=== PATIENT | male | born 1955 | race Two or more races ===

== ENCOUNTER → 2017-01-22 | Outpatient (CLI) | payer OTHER ==
[~2017-01-22] MED LIST: ASCO500C PO; AUGM500T7 PO; BACL20TA PO; BUSP1TAB PO; CIPR-9 PO; CLAR10CA3 PO; CRANCAP9; GABA600T PO; OMEP20TA PO; STOO100C; TRAZ50TA12 PO
--- NOTE | 2017-01-22 17:58 | RADRPT ---
EXAM DATE/TIME: 01/22/2017 15:10 [place] COMPARISON: US KIDNEY/RENAL/BLADDER, December 10, 2013, 16:15. INDICATIONS : Frequent UTI. MEDICAL HISTORY : Gastroesophageal reflux disease. Methicillin-resistant Staphylococcus aureus. Osteomyelitis. Quadrepl egia. Tuberculosis. Arthritis. Hepatitis C. SURGICAL HISTORY : Pacemaker. Cervical surgery. ENCOUNTER: Subsequent ACUITY: 3 days PAIN SCORE: 1/10 LOCATION: Bilateral flank MEASUREMENTS: RIGHT KIDNEY: 14.1 x 5.2 x 5.8 cm LEFT KIDNEY: 10.8 x 6.2 x 7.6 cm FINDINGS: RIGHT KIDNEY: Renal cortex is normal in thickness and echotexture. No hydronephrosis, stone, or mass. LEFT KIDNEY: Renal cortex is normal in thickness and echotexture. No hydronephrosis, stone, or mass. BLADDER: A Joel catheter is present within the bladder which does not allow for evaluation. CONCLUSION: 1. Unremarkable ultrasound examination of the kidneys. Escobar Garg MD on January 22, 2017 at 17:56 Board Certified Radiologist. This report was verified electronically.
== END ==
LOC: HRAD 15:00
PROVIDERS: ATTEND Urology
DX: N31.9 Neuromuscular dysfunction of bladder, unspecified (principal)
CPT/HCPCS: 76775

== ENCOUNTER 2018-01-04 00:41 | Emergency (ER) | payer OTHER ==
[~2018-01-04 00:41] MED LIST changes: +ALPR.25 PO; -ASCO500C PO; -AUGM500T7 PO; +BISA10SU3 RECTAL; +BUSP15TA PO; -BUSP1TAB PO; +CEFT2INJ; -CIPR-9 PO; -CLAR10CA3 PO; -CRANCAP9; +DULC10SU3 RECTAL; +ENEMENE5; +IPRASOL INH; +LORA-520 PO; +MAPA325T PO; +MILKSUS PO; -OMEP20TA PO; +OXYC15TA PO; +RANI150T PO; +REME30TA PO; -STOO100C; +TH C450C PO; +VITA500T83 PO; +[UNRECOGNIZED DRUG - CODE] PO
[2018-01-04 00:47] VITALS: BP 95/50; PULSE 97; RESP 16; TEMP 99.3; O2SAT 95
[2018-01-04] MEDS ORDERED: OMEP20TA93 PO (01:15)
[2018-01-04] MEDS ORDERED: SODIUM CHLOR 0.9% 1000 ML INJ 1,000 ML IV ONE (01:45)
[2018-01-04 02:28] LABS: AUTOMATED NEUTROPHIL # 2.6 TH/MM3 (1.8-7.7); BASOPHIL # 0.1 TH/MM3 (0-0.2); BASOPHIL % 0.9 % (0.0-2.0); EOSINOPHIL # 0.2 TH/MM3 (0-0.4); EOSINOPHIL % 2.1 % (0.0-4.0); HEMATOCRIT 44.2 % (39.0-51.0); HEMOGLOBIN 14.8 GM/DL (13.0-17.0); LYMPH % 53.4 % (9.0-44.0); LYMPHOCYTE # 4.1 TH/MM3 (1.0-4.8); MEAN CELL VOLUME 86.6 FL (80.0-100.0); MEAN CORPUSCULAR HGB CONC 33.5 % (32.0-36.0); MEAN PLATELET VOLUME 7.6 FL (7.0-11.0); MONOCYTE # 0.8 TH/MM3 (0-0.9); NEUT % 33.6 % (16.0-70.0); PLATELET COUNT 369 TH/MM3 (150-450); RED BLOOD COUNT 5.11 MIL/MM3 (4.50-5.90); RED CELL DISTRIBUTION WIDTH 15.7 % (11.6-17.2); WHITE BLOOD COUNT 7.7 TH/MM3 (4.0-11.0)
[2018-01-04 02:47] LABS: ALBUMIN 3.5 GM/DL (3.4-5.0); ALT (GPT) 38 U/L (12-78); AST (GOT) 34 U/L (15-37); BICARBONATE 31.9 MEQ/L (21.0-32.0); BLOOD UREA NITROGEN 23 MG/DL (7-18); CALCIUM 8.6 MG/DL (8.5-10.1); CHLORIDE 101 MEQ/L (98-107); GLOMERULAR FILTRATION RATE 86 ML/MIN (>89); GLUCOSE,RANDOM 73 MG/DL (74-106); SODIUM (NA) 139 MEQ/L (136-145)
[2018-01-04 02:49] LABS: ALKALINE PHOSPHATASE 134 U/L (45-117); TOTAL BILIRUBIN ADULT 0.4 MG/DL (0.2-1.0); TOTAL PROTEIN 8.7 GM/DL (6.4-8.2)
[2018-01-04 02:59] LABS: AMORPHOUS SEDIMENT, URINE OCC; BACTERIA, URINE MANY /hpf; BILIRUBIN, URINE NEG (NEG); BLOOD, URINE SMALL (NEG); GLUCOSE,URINE NEG (NEG); KETONE, URINE TRACE mg/dL (NEG); MUCUS URINE FEW /lpf (OCC); NITRITE,URINE NEG (NEG); PH, URINE 7.5 (5.0-8.5); TRIPLE PHOSPHATE CRYSTAL,URINE MOD /hpf; URINE COLOR LIGHT-RED (YELLW/STRAW); URINE LEUKOCYTE ESTERASE LARGE (NEG)
[2018-01-04] MEDS ORDERED: CIPR-9 PO (04:01)
--- NOTE | 2018-01-04 04:01 | PD ---
HPI Chief Complaint: Complaint Time Seen by Provider: 01:33 Travel History International Travel<30 days: No Contact w/Intl Traveler<30days: No Traveled to known affect area: No History of Present Illness HPI Patient is a 62 year old male with a suprapubic catheter, who comes in complaining of symptoms of a UTI. He says he noticed some blood in his urine yesterday and had some decreased urinary output today. He says the urine is flowing well now, but it is very cloudy. He denies fever or chills. He denies abdominal pain. He says he finished a course of antibiotics 2 weeks ago for a UTI as well. Severity is mild. PFSH Past Medical History Arthritis: Yes (KNEE) Anxiety: Yes Hypertension: No Medical other: Yes (SPINAL CORD INJURY QUAD.) Neurologic: Yes (QUADREPLEGIA) Past Surgical History Abdominal Surgery: Yes (FLAP REPAIR DECUBITIS ON BUTTOCK) Cardiac Surgery: Yes (PACEMAKER) Oral Surgery: Yes (TRACH.) Pacemaker: No Other Surgery: Yes (OSTEOMYELITIS RT FOOT, ARTHROSCOPY IN BLE) Social History Alcohol Use: No Tobacco Use: No Substance Use: No Allergies-Medications (Allergen,Severity, Reaction): Coded Allergies: *MDRO Multi-Drug Resistant Organism (Verified Allergy, Unknown, 01/04/18) MRSA Reported Meds & Prescriptions Reported Meds & Active Scripts Active Reported Omeprazole 20 Mg Tab 20 Mg PO DAILY Vitamin C ER (Ascorbic Acid) 500 Mg [place] 500 Mg PO Trazodone (Trazodone HCl) 50 Mg Tab 50 Mg PO DIRECTED Oxycodone (Oxycodone HCl) 15 Mg Tab 15 Mg PO Q6H PRN Milk of Magnesia Liq (Magnesium Hydroxide) 400 Mg/5 Ml Susp 30 Ml PO DAILY PRN Allergy (Loratadine) 10 Mg Tab 10 Mg PO DAILY Gabapentin 600 Mg Tab 600 Mg PO Q8HR Enema Disposable (Sodium Phosphates) 19 Gram-7 Gram/118 Ml Carmen Duoneb (Ipratropium-Albuterol Neb) 0.5-2.5 Mg/3 Ml Neb 1 Nebule INH Q6HR NEB Dulcolax Supp (Bisacodyl) 10 Mg Supp 10 Mg RECTAL DAILY PRN Cerovite Advanced Formula (Multiple Vitamins W/ Minerals) 9 Mg Iron/15 Ml Liq 9 Tab PO DAILY Buspirone (Buspirone HCl) 15 Mg Tab 15 Mg PO BID Bisacodyl Supp (Bisacodyl) 10 Mg Supp 10 Mg RECTAL DAILY PRN Baclofen 20 Mg Tab 20 Mg PO BID Mapap (Acetaminophen) 325 Mg Tab 2 Tab PO Q4-6H PRN Xanax (Alprazolam) 0.25 Mg Tab 0.25 Mg PO Review of Systems Except as stated in HPI: all other systems reviewed are Neg General / Constitutional: No: Fever, Chills HENT: No: Headaches, Lightheadedness Cardiovascular: No: Chest Pain or Discomfort Respiratory: No: Shortness of Breath Gastrointestinal: No: Nausea, Vomiting, Abdominal Pain Skin: No Rash, No Change in Pigmentation Neurologic: No: Weakness, Dizziness Physical Exam Narrative GENERAL: Awake and alert, in no acute distress. SKIN: Focused skin assessment warm/dry. HEAD: Atraumatic. Normocephalic. EYES: Pupils equal and round. No scleral icterus. ENT: Mucous membranes pink and moist. NECK: Trachea midline. No JVD. CARDIOVASCULAR: Regular rate and rhythm. No murmur appreciated. RESPIRATORY: No accessory muscle use. Clear to auscultation. Breath sounds equal bilaterally. GASTROINTESTINAL: Abdomen soft, non-tender, nondistended. Suprapubic catheter in place. MUSCULOSKELETAL: No obvious deformities. No clubbing. No cyanosis. No edema. NEUROLOGICAL: Awake and alert. Paraplegic in a wheelchair. PSYCHIATRIC: Appropriate mood and affect; insight and judgment normal. Data Data Last Documented VS Vital Signs Date Time Temp Pulse Resp B/P (MAP) Pulse Ox O2 Delivery O2 Flow Rate FiO2 01/04/18 00:47 99.3 97 16 95/50 (65) 95 Room Air Orders Orders Complete Blood Count With Diff (01/04/18 01:43) Comprehensive Metabolic Panel (01/04/18 01:43) Urinalysis - C+S If Indicated (01/04/18 01:43) Sodium Chlor 0.9% 1000 Ml Inj (Ns 1000 M (01/04/18 01:45) Urine Culture (01/04/18 02:40) Labs Laboratory Tests Test 01/04/18 01:50 01/04/18 02:40 White Blood Count 7.7 TH/MM3 Red Blood Count 5.11 MIL/MM3 Hemoglobin 14.8 GM/DL Hematocrit 44.2 % Mean Corpuscular Volume 86.6 FL Mean Corpuscular Hemoglobin 29.0 PG Mean Corpuscular Hemoglobin Concent 33.5 % Red Cell Distribution Width 15.7 % Platelet Count 369 TH/MM3 Mean Platelet Volume 7.6 FL Neutrophils (%) (Auto) 33.6 % Lymphocytes (%) (Auto) 53.4 % Monocytes (%) (Auto) 10.0 % Eosinophils (%) (Auto) 2.1 % Basophils (%) (Auto) 0.9 % Neutrophils # (Auto) 2.6 TH/MM3 Lymphocytes # (Auto) 4.1 TH/MM3 Monocytes # (Auto) 0.8 TH/MM3 Eosinophils # (Auto) 0.2 TH/MM3 Basophils # (Auto) 0.1 TH/MM3 CBC Comment DIFF FINAL Differential Comment Blood Urea Nitrogen 23 MG/DL Creatinine 0.90 MG/DL Random Glucose 73 MG/DL Total Protein 8.7 GM/DL Albumin 3.5 GM/DL Calcium Level 8.6 MG/DL Alkaline Phosphatase 134 U/L Aspartate Amino Transf (AST/SGOT) 34 U/L Alanine Aminotransferase (ALT/SGPT) 38 U/L Total Bilirubin 0.4 MG/DL Sodium Level 139 MEQ/L Potassium Level 4.2 MEQ/L Chloride Level 101 MEQ/L Carbon Dioxide Level 31.9 MEQ/L Anion Gap 6 MEQ/L Estimat Glomerular Filtration Rate 86 ML/MIN Urine Color LIGHT-RED Urine Turbidity CLOUDY Urine pH 7.5 Urine Specific [place] 1.024 Urine Protein 100 mg/dL Urine Glucose (UA) NEG mg/dL Urine Ketones TRACE mg/dL Urine Occult Blood SMALL Urine Nitrite NEG Urine Bilirubin NEG Urine Urobilinogen 8.0 MG/DL Urine Leukocyte Esterase LARGE Urine RBC 74 /hpf Urine WBC /hpf Urine Triple Phosphate Crystals MOD /hpf Urine Amorphous Sediment OCC Urine Bacteria MANY /hpf Urine Mucus FEW /lpf Microscopic Urinalysis Comment CATH-CULTURE IND MDM Medical Decision Making Medical Screen Exam Complete: Yes Emergency Medical Condition: Yes Medical Record Reviewed: Yes Differential Diagnosis UTI vs dehydration vs pyelonephritis Narrative Course Patient is a 62 year old male who comes in complaining of UTI symptoms. Exam shows no acute abnormalities. IV established, labs sent. Labs show slight dehydration, no other abnormalities. Urinalysis is positive for UTI. Given IVF. Discharged with prescription for cipro. Advised to follow up with his urologist. Advised to return to the ED as needed for any worsening symptoms. Diagnosis Primary Impression: UTI (lower urinary tract infection) Patient Instructions: General Instructions, Urinary Tract Infection in Men (ED) Additional Instructions: Take all of your antibiotics. Drink plenty of water. Follow up with your urologist. Return to the ED as needed for any worsening symptoms. Scripts Ciprofloxacin (Cipro) 500 Mg Tab 500 MG PO BID for Infection for 10 Days, #20 TAB 0 Refills Prov: Jennifer Murphy MD 01/04/18 Disposition: 01 DISCHARGE HOME Condition: Stable Jennifer Murphy MD Jan 04, 2018 04:01
== END 2018-01-04 04:26 | disposition home or self-care (01) ==
LOC: NEPC 00:41
DX: N39.0 Urinary tract infection, site not specified (principal); B96.5 Pseudomonas (aeruginosa) (mallei) (pseudomallei) as the cause of diseases classified elsewhere; E86.0 Dehydration; M17.9 Osteoarthritis of knee, unspecified; F41.9 Anxiety disorder, unspecified; G82.50 Quadriplegia, unspecified
CPT/HCPCS: 80053; 81001; 85025; 87077; 87086; 87186; 96360; 99284; J7030